=== PATIENT | female | born 1955 | race Caucasian/White ===

== ENCOUNTER 2016-06-28 15:52 | Outpatient (CLI) | payer OTHER ==
--- NOTE | 2016-06-28 16:27 | DIAGNOSTIC IMAGING REPORT ---
PROCEDURE: XR FOOT 3 VIEWS - RIGHT INDICATION: FRACTURE OF THE FOURTH METATARSAL BONE TECHNIQUE: Three views. COMPARISON: None available FINDINGS: Healing nondisplaced fracture of the head of the fifth metatarsal laterally. This appears to be a crush type injury. There is adjacent soft tissue swelling. IMPRESSION: 1. Nondisplaced crush type fracture of the fifth metatarsal head.
== END 2016-06-28 23:00 ==
LOC: XR SRH 15:52
DX: S92.351D Displaced fracture of fifth metatarsal bone, right foot, subsequent encounter for fracture with routine healing (principal)

== ENCOUNTER 2016-10-26 12:58 | Outpatient (CLI) | payer OTHER ==
--- NOTE | 2016-10-26 13:46 | DIAGNOSTIC IMAGING REPORT ---
PROCEDURE: US VENOUS - BILATERAL EXT INDICATION: ABNORMAL D-DIMER; ABNORMAL COAGULATION TECHNIQUE: Duplex sonography of the deep venous system in both lower extremities was performed. Compression and augmentation techniques were used. COMPARISON: None. FINDINGS: Each interrogated segment of deep vein from the common femoral vein into the calf veins demonstrates normal compressibility, augmentation and/or color Doppler flow without filling defect. No evidence of significant soft-tissue edema, soft-tissue mass or cyst. IMPRESSION: 1. No deep venous thrombosis in either lower extremity.
--- NOTE | 2016-10-26 15:39 | DIAGNOSTIC IMAGING REPORT ---
PROCEDURE: CTA THORAX WITH CONTRAST INDICATION: ABNORMAL D-DIMER; ABNORMAL COAGULATION TECHNIQUE: 84 ml of Isovue 370 was injected intravenously and axial images were obtained of the entire thorax with 3D sagittal and coronal MIP reconstructions. COMPARISON: None. FINDINGS: No evidence of pulmonary emboli. Thickening of the septa with mild ground-glass appearance of the lungs, small bilateral pleural effusions and associated with mild cardiomegaly. No adenopathy. No aortic dissection or aneurysm. Mild coronary atherosclerosis. 1 cm hypoenhancing left hepatic lobe lesion, not well visualized due scanning artifacts. Moderate degenerative changes of the spine. IMPRESSION: 1. CHF with mild bilateral pleural effusions 2. No evidence of pulmonary emboli 3. 1 cm hypoenhancing left hepatic lobe lesion. Consider ultrasound for further evaluation 4. Results discussed with Dr. Talamantes
== END 2016-10-26 23:00 ==
LOC: US SRH 12:58
DX: R79.1 Abnormal coagulation profile (principal); I50.9 Heart failure, unspecified; J90 Pleural effusion, not elsewhere classified; K76.9 Liver disease, unspecified

== ENCOUNTER → 2016-11-05 | Outpatient (CLI) | payer OTHER ==
--- NOTE | 2016-11-05 23:40 | DIAGNOSTIC IMAGING REPORT ---
REFERRING PHYSICIAN/PROVIDER: Dr. Talamantes CONSULTING SHELL TRIM OPERATOR: Ronald Mcwilliams MD PROCEDURE: 2D echo, M-mode and complete color and flow Doppler interrogation TECHNICAL QUALITY: Technically difficult INDICATION: CHF INTERPRETATIONS: CHAMBERS: LEFT ATRIUM: Normal left atrial size. LEFT VENTRICLE: Normal left ventricular size. Mild concentric left ventricular hypertrophy. Grade I diastolic dysfunction. EF visually estimated to be 60-65%. RIGHT ATRIUM: Normal right atrial size. RIGHT VENTRICLE: Normal right ventricular size and systolic function. VALVES: All valves nonrheumatic unless otherwise indicated. AORTIC VALVE: Individual aortic valve leaflets not seen well. Aortic sclerosis without stenosis. No aortic regurgitation. MITRAL VALVE: No mitral stenosis. No mitral regurgitation. TRICUSPID VALVE: Trace tricuspid regurgitation. Unable to estimate pulmonary artery systolic pressure due to inadequate tricuspid regurgitation jet. PULMONIC VALVE: No pulmonic regurgitation. MISCELLANEOUS: No pericardial effusion. HEMODYNAMICS: Normal size IVC with >50% inspiratory collapse. CVP is 3 mmHg. IMPRESSION: 1. Mild concentric left ventricular hypertrophy with normal LV size and systolic function, EF visually estimated to be 60-65%. No wall motion abnormalities. 2. Grade I diastolic dysfunction. 3. No hemodynamically significant valve disease. 4. Normal right ventricular size and systolic function. 5. Unable to estimate pulmonary artery systolic pressure due to inadequate tricuspid regurgitation jet.
== END ==
LOC: US SRH 10:20
DX: I50.30 Unspecified diastolic (congestive) heart failure (principal)